=== PATIENT | female | born 1945 | race Caucasian/White ===

== ENCOUNTER → 2021-05-19 16:56 | Outpatient (BNVA) | payer OTHER, MEDICARE, SELFPAY | PROVIDERS: Visit Provider Nurse Practitioner Family | DX: Z20.822 Contact with and (suspected) exposure to COVID-19 (principal) | CPT/HCPCS: 87635 ==

== ENCOUNTER 2024-02-09 12:41 | Emergency (ER) | payer OTHER, MEDICAID, SELFPAY ==
[2024-02-09] VITALS (7 sets, daily range): BP systolic 126–191; BP diastolic 68–94; PULSE 72–81; RESP 14–16; TEMP 36.6; O2SAT 95–97; BMI 19.2
--- NOTE | 2024-02-09 12:50 | PC.NURSE ---
Pt in restroom when called for triage
--- NOTE | 2024-02-09 14:12 | CTR_ITS ---
PROCEDURE INFORMATION: Exam: CT Head Without Contrast Exam date and time: 02/09/2024 2:50 PM Age: 78 years old Clinical indication: Dizziness; Additional info: Dizziness/hsu/weakness TECHNIQUE: Imaging protocol: Computed tomography of the head without contrast. Radiation optimization: All CT scans at this facility use at least one of these dose optimization techniques: automated exposure control; mA and/or kV adjustment per patient size (includes targeted exams where dose is matched to clinical indication); or iterative reconstruction. COMPARISON: No relevant prior studies available. RADIATION DOSE METRICS: Total DLP (mGy-cm): 1070 FINDINGS: Brain: Age related brain involution is present. Diffuse subcortical and periventricular white matter hypodensities are most in favor with chronic small vessel disease. Chronic right basal ganglia lacunar infarcts. Chronic encephalomalacia in the bilateral occipital lobes. Chronic lacunar infarcts in the left frontal subcortical periventricular white matter. No extra-axial fluid collections, midline shift, brain herniation, intracranial hemorrhage, or mass effect. Cerebral ventricles: Compensatory exvacuo ventriculomegaly is present. Paranasal sinuses: Visualized sinuses are unremarkable. No fluid levels. Mastoid air cells: Visualized mastoid air cells are well aerated. Orbital cavities: There have been bilateral intraocular lens replacements. Bones: Unremarkable. No acute fracture. Soft tissues: Unremarkable. Other findings: Intracranial atherosclerosis is present. CT/CT head wo con* [id number] IMPRESSION: No acute intracranial abnormality.
--- NOTE | 2024-02-09 14:12 | XRR_ITS ---
PROCEDURE INFORMATION: Exam: XR Chest Exam date and time: 02/09/2024 2:41 PM Age: 78 years old Clinical indication: Other: Dizzy; Additional info: Dizziness TECHNIQUE: Imaging protocol: Radiologic exam of the chest. Views: 1 view. COMPARISON: No relevant prior studies available. FINDINGS: Airway: Patent Lungs: Lung hyperexpansion, favoring COPD. Lung hyperlucency, favoring emphysema. There are multiple punctate pulmonary parenchymal calcifications, consistent with remote granulomatous organism exposure. Mild chronic interstitial reticulation in the bilateral costophrenic angles, likely related to chronic interstitial lung disease/atelectasis. No consolidations. 1.4 cm calcified nodule in the left mid lung or anterior chest wall soft tissues. Lateral view should be able to clarify its position. Pleural spaces: No pleural effusions or pneumothorax. Heart/Mediastinum: Prior TAVR. The heart demonstrates mild diffuse enlargement. Vasculature: Calcified aortic knob. Bones/joints: No acute skeletal abnormality or aggressive osseous lesion. XR/XR chest 1V portable [id number] IMPRESSION: No acute thoracic pathology.
--- NOTE | 2024-02-09 14:20 | ECG_ITS ---
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 Measurements Intervals [place] Rate: 75 P: 0 OR: 0 QRS: -33 QRSD: 94 T: 112 QT: 373 QTc: 418 Interpretive Statements ATRIAL FIBRILLATION LEFT AXIS DEVIATION [QRS AXIS < -30] PATTERN CONSISTENT WITH PULMONARY DISEASE VOLTAGE CRITERIA FOR LVH [MEETS CRITERIA IN ONE OF: R(aVL), S(V1), R(V5), R(V5/V6)+S(V1)] POSSIBLE SEPTAL MYOCARDIAL INFARCTION , OF INDETERMINATE AGE [30 ms Q WAVE IN V1/V2] MODERATE T-WAVE ABNORMALITY, CONSIDER LATERAL ISCHEMIA [-0.1+ mV T-WAVE IN I/aVL/V5/V6] No previous ECG available for comparison Electronically Signed On 02-09-2024 20:23:10 CDT by Raji Hartman M.D. [id number]
--- NOTE | 2024-02-09 14:34 | ED_ITS ---
HPI - Weakness 2 General: Chief complaint: Weakness Stated complaint: Weakness, disoriented Time Seen by Provider: 02/09/24 14:02 Source: patient and family Mode of arrival: ambulatory Limitations: no limitations History of Present Illness: Patient is an 78-year-old female brought into the emergency department by son due to weakness for the past day. Son is primary historian and states that last night he called the patient and she just seemed not her spunky self. He states that the patient has a history of hyponatremia and urinary tract infections that both in the past have caused her to seem weak and disoriented. This morning, patient's other son was driving through and stopped at patient's house for breakfast, when patient spilled cereal bowl and just sat there and did nothing. Reportedly she was given a new bowl of cereal and after eating seemed to perk up a bit. However when son arrived to patient's house this morning to pick her up, she was reportedly so weak that he had to help her to the car. Normally patient is ambulatory and alert and oriented x 4 and does not use assistance with cane or walker. Son states that patient has had identical symptoms in the past from urinary tract infection but also from low sodium. Patient has been hospitalized for low sodium in addition to a fall where she reportedly struck her head and was required to be restrained for a week due to behavioral changes. At that time son notes that she seemed to have an old stroke found on CT, but this is not elaborated on further. Patient does have a history of atrial fibrillation and is anticoagulated. There are no recent falls or medication changes to note. Patient is not short of breath or complaining of any chest pain or palpitations. She does note that she feels dizzy and has had a headache for the past day. She also confirms that she is weak and can tell that it is harder for her to walk. At this time she is only alert and oriented to self, son states that this is normal for her when she either has a urinary tract infection or electrolyte imbalances. Complaint: generalized weakness Onset (ago): day(s) Duration: constant Location: generalized Associated symptoms: Reports confusion and headache(s); Denies chest pain, chills, dysuria, fever(s), nausea or vomiting Review of Systems 2 General: Reports: 10 or more systems reviewed and unremarkable except in HPI and below Const: Denies: fever(s), chills or fatigue Eyes: Denies: change in vision ENMT: Denies: throat pain, ear or mastoid pain or nasal discharge Card: Denies: chest pain, palpitations, swelling of feet/ankles or lightheadedness Resp: Denies: dyspnea, productive cough or wheezing GI: Denies: abdominal pain, nausea, vomiting, diarrhea or constipation : Denies: flank pain, difficulty voiding, dysuria or urinary frequency Musc: Denies: neck pain, back pain or joint pain Skin/Breast: Denies: rash Neuro: Reports: headache(s), weakness in extremities, dizziness and confusion; Denies: numbness in extremities, sensory changes, lack of coordination, frequent falls, behavioral changes, Slurred speech present or seizure-like activity Physical Exam 2 Const: COMMON NORMALS: no acute distress, no limitations and healthy appearing GENERAL APPEARANCE: cooperative, comfortable and well developed O RIENTATION/CONSCIOUSNESS: Yes awake and Yes oriented to person HENMT: COMMON NORMALS: normocephalic, atraumatic and hearing grossly normal bilaterally HEAD & SCALP: normocephalic and atraumatic Eye: COMMON NORMALS: Equal, round and reactive pupils present, EOMs intact bilaterally and conjunctivae normal CONJUNCTIVA: Yes conjunctivae normal P UPIL: Yes Equal, round and reactive pupils present Neck/C-Spine: COMMON NORMALS: full ROM, supple and no JVD Resp: COMMON NORMALS: normal respiratory effort, No retractions, No use of accessory muscles and clear to auscultation bilaterally AUSCULTATION: clear to auscultation bilaterally Cardio: COMMON NORMALS: no JVD, regular rate, No clicks present (Cardio) and No rub (Cardio) RATE: regular rate RHYTHM: abnormal rhythm irregularly irregular HEART SOUNDS: Murmur heart sound present systolic GI: COMMON NORMALS: Normal to inspection, nondistended, normoactive bowel sounds present, Soft to palpation and non-tender AUSCULTATION: Yes normoactive bowel sounds PALPATION: Yes Soft to palpation RECTAL EXAM: d eferred Extremity: COMMON NORMALS: normal to inspection, full ROM and capillary refill normal Neuro: COMMON NORMALS: CN's II-XII intact bilaterally, moves all extremities, no focal motor deficits and no sensory deficits noted SENSORIUM/ORIENTATION: Yes oriented to person COORDINATION/BALANCE: [id number]-jk-[id number] test normal and obus-ie-fbdr test normal SPEECH: speech normal GAIT: Yes Shuffling gait present MOTOR EXAM: 5/5 motor strength present throughout, Pronator motor function not present and no tremor noted COORDINATION: mcpacp-sp-ksjb test normal and davp-kc-srrc test normal OTHER: Patient is alert and oriented only to self, is unable to state the date or where she is Skin: COMMON NORMALS: no rashes or lesions noted GENERAL SKIN EXAM: no rashes or lesions noted Course 2 Vital Signs: Vital signs: Vital Signs Temperature 97.9 F 02/09/24 13:08 Pulse Rate 78 02/09/24 17:00 Respiratory Rate 16 02/09/24 17:00 Blood Pressure 182/94 02/09/24 17:00 Pulse Oximetry 96 02/09/24 17:00 Oxygen Delivery Me thod Room Air 02/09/24 17:00 MDM - Weakness Medical Decision Making Patient brought in by son for concerns of weakness and dorsal orientation for the past day or so. Son did note that patient has acted similarly with low sodium and urinary tract infection in the past. Patient was alert to self only on physical examination, however son did note that this is not uncommon when she has either UTI or electrolyte abnormalities. Vitals were normal on arrival, blood pressure has steadily increased throughout the ED course, however was 160 systolic upon discharge and patient is noted to run high. Her neurological examination otherwise was completely normal as she did not demonstrate any focal deficit. Her initial EKG revealed atrial fibrillation which she has history of, no STEMI and rate of 75. This initial EKG was reviewed with Dr. Pride. She does live alone and son regularly checks up on her, normally ambulatory without use of assistance. Lab work did find her to have a low sodium of 131, son does note that it normally runs 132?135. Creatinine and BUN slightly elevated, patient does have history of kidney disease. Per son, her troponin is also chronically elevated. Her baseline and delta troponin today more on diagnostic when taking this into account. Hemoglobin was decreased likely secondary to her chronic kidney disease. 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 Urinalysis did reveal evidence of bladder infection, which could likely be explaining patient's increased weakness and apparent disorientation. She will be started on cefdinir and I did inform her and son to follow-up with primary care next Tuesday for reevaluation and recheck of labs. Did inform her to keep a log of her blood pressures as well to to discuss with primary care as currently at this time she only takes amlodipine once a day. Entirety of the case and patient's workup reviewed with supervising ED physician, Dr. Deutsch, who agrees with disposition at this time. Lab Data 02/09/24 14:40 02/09/24 14:40 Radiology Impressions Chest X-Ray 02/09/24 14:12 IMPRESSION: No acute thoracic pathology. Head CT 02/09/24 14:12 IMPRESSION: No acute intracranial abnormality. Laboratory Results WBC 10.40 10^3/uL (3.29-11.43) 02/09/24 14:40 RBC 3.41 10^6/uL (3.85-5.65) L 02/09/24 14:40 Hgb 10.40 g/dL (11.27-16.99) L 02/09/24 14:40 Hct 32.6 % (36-47) L 02/09/24 14:40 MCV 95.6 fl (85-98) 02/09/24 14:40 MCH 30.5 pg (27-33) 02/09/24 14:40 MCHC 31.9 g/dL (30-55) 02/09/24 14:40 RDW 14.7 % (12.1-15.1) 02/09/24 14:40 Plt Count 234 10^3/cmm (157-399) 02/09/24 14:40 MPV 12.1 fL (7.4-10.4) H 02/09/24 14:40 Neut % (Auto) 73.8 % 02/09/24 14:40 Lymph % (Auto) 15.8 % 02/09/24 14:40 [place] % (Auto) 9.7 % 02/09/24 14:40 Eos % (Auto) 0.1 % 02/09/24 14:40 Baso % (Auto) 0.3 % 02/09/24 14:40 Neut # (Auto) 7.68 10^3/uL (1.8-7.7) 02/09/24 14:40 Lymph # (Auto) 1.6 10^3/uL (0.8-4.8) 02/09/24 14:40 [place] # (Auto) 1.0 10^3/uL (0.2-0.9) H 02/09/24 14:40 Eos # (Auto) 0.0 10^3/uL (0.0-0.8) 02/09/24 14:40 Baso # (Auto) 0.0 10^3/uL (0.0-0.1) 02/09/24 14:40 Nucleated RBC % (auto) 0 % 02/09/24 14:40 Nucleated RBCs # 0.0 /100WBC 02/09/24 14:40 PT 16.10 SECONDS (12.1-14.9) H 02/09/24 14:40 INR 1.25 (0.8-1.2) H 02/09/24 14:40 APTT 26.1 SECONDS (23.9-36.7) 02/09/24 14:40 Sodium 131 mmol/L (136-145) L 02/09/24 14:40 Potassium 4.8 mmol/L (3.5-5.1) 02/09/24 14:40 Chloride 94 mmol/L (98-107) L 02/09/24 14:40 Carbon Dioxide 24 mmol/L (22-29) 02/09/24 14:40 Anion Gap 17.8 (5-19) 02/09/24 14:40 BUN 36 mg/dL (8-23) H 02/09/24 14:40 Creatinine 1.2 mg/dL (0.5-0.9) H 02/09/24 14:40 GFR Calculation Not Reportable 02/09/24 14:40 Glucose 129 mg/dL (65-115) H 02/09/24 14:40 Calculated Osmolality 282 mOsm/kg (285-295) L 02/09/24 14:40 Calcium 9.7 mg/dL (8.5-10.5) 02/09/24 14:40 Magnesium 1.4 mg/dL (1.7-2.3) L 02/09/24 14:40 Total Bilirubin 0.4 mg/dL (0.15-1.2) 02/09/24 14:40 AST 23 U/L (0-32) 02/09/24 14:40 ALT 16 U/L (0-33) 02/09/24 14:40 Alkaline Phosphatase 75 U/L (35-105) 02/09/24 14:40 Troponin T Baseline 28 ng/L (0-10) H 02/09/24 14:40 Troponin T 120 Minute 24.87 ng/L (0-10) H 02/09/24 16:25 Delta Troponin T -3.13 ABS# (0-10) L 02/09/24 16:25 Total Protein 7.7 g/dL (6.6-8.7) 02/09/24 14:40 Albumin 4.2 g/dL (3.5-5.2) 02/09/24 14:40 Globulin 3.5 g/dL (1.3-4.6) 02/09/24 14:40 Urine Color Yellow (Yellow) 02/09/24 16:07 Urine Appearance Slightly cloudy (CLEAR) 02/09/24 16:07 Urine pH 6 (5-7) 02/09/24 16:07 Ur Specific [place] 1.010 (1.005-1.030) 02/09/24 16:07 Urine Protein Trace (Negative) 02/09/24 16:07 Urine Glucose (UA) Norm (Normal) 02/09/24 16:07 Urine Ketones Negative (Negative) 02/09/24 16:07 Urine Blood Neg (Negative) 02/09/24 16:07 Urine Nitrate Positive (Negative) A 02/09/24 16:07 Urine Bilirubin Neg (Negative) 02/09/24 16:07 Urine Urobilinogen Neg mg/dL (Negative) 02/09/24 16:07 Ur Leukocyte Esterase Negative (Negative) 02/09/24 16:07 Urine RBC 0-4 /hpf (0-2) H 02/09/24 16:07 Urine WBC 5-10 /hpf (0-5) H 02/09/24 16:07 Ur Squamous Epith Cells 0-4 /hpf (0-5) H 02/09/24 16:07 Amorphous Sediment Not Reportable 02/09/24 16:07 Urine Bacteria 3+ /hpf (NONE) H 02/09/24 16:07 Urine Mucus Trace /hpf 02/09/24 16:07 All radiology interpretation(s) finalized by discharge Discharge Plan Discharge Patient Disposition: Home Clinical Impression: Chronic hyponatremia Urinary tract infection Qualifiers: Urinary tract infection type: acute cystitis Hematuria presence: without hematuria Qualified Code(s): N30.00 - Acute cystitis without hematuria Chronic kidney disease Qualifiers: Chronic kidney disease stage: unspecified stage Qualified Code(s): N18.9 - Chronic kidney disease, unspecified Condition: Stable Prescriptions: New cefdinir 300 mg capsule 300 mg PO BID 10 Days Qty: 20 0RF No Action Eliquis 5 mg tablet 5 mg PO BID diltiazem HCl 240 mg capsule,extended release 24 hr 240 mg PO DAILY levothyroxine 88 mcg capsule 88 mcg PO DAILY atorvastatin 40 mg tablet 40 mg PO DAILY metformin 500 mg tablet 500 mg PO DAILY amlodipine 5 mg tablet 5 mg PO DAILY sodium chloride 1,000 mg tablet,soluble 1,000 mg PO DAILY stool softener PO Laxative (bisacodyl) 5 mg tablet 5 mg PO DAILY melatonin 10 mg capsule 10 mg PO DAILY Discharge Orders: Discharge ED (Routine); Ordered 02/09/24 Ordered By: Trung Soria Discharge Diet: As Directed Discharge Activity: Increase activity as tolerated Patient Instructions: Urinary Tract Infection in Older Adults (ED) Activity Restrictions/Additional Instructions: Take cefdinir as prescribed. Plenty of fluids. Please follow-up with primary care next Tuesday for recheck of labs and for general reevaluation. Monitor your blood pressures at home to report to primary care. If you develop any new or concerning symptoms please return to the emergency department immediately. Coding Level of Care Code ED Photographic Technician for Mikey Marcano
[2024-02-09 14:52] LABS: Basophils % 0.3 %; Eosinophils % 0.1 %; Hematocrit 32.6 % (36-47); Lymphocytes # 1.6 10^3/uL (0.8-4.8); Lymphocytes % 15.8 %; Mean Corpuscular HGB Conc 31.9 g/dL (30-55); Mean Corpuscular Hemoglobin 30.5 pg (27-33); Mean Corpuscular Volume 95.6 fl (85-98); Mean Platelet Volume 12.1 fL (7.4-10.4); Monocytes % 9.7 %; Neutrophils # 7.68 10^3/uL (1.8-7.7); Neutrophils % 73.8 %; Nucleated Red Blood Cells % 0 %; Platelet Count 234 10^3/cmm (157-399); Red Blood Count 3.41 10^6/uL (3.85-5.65); Red Cell Distribution Width 14.7 % (12.1-15.1)
[2024-02-09 15:05] LABS: INR 1.25 (0.8-1.2)
[2024-02-09 15:06] LABS: Partial Thromboplastin Time 26.1 SECONDS (23.9-36.7)
[2024-02-09 15:15] LABS: Alanine Aminotransferase 16 U/L (0-33); Albumin Level 4.2 g/dL (3.5-5.2); Alkaline Phosphatase 75 U/L (35-105); Anion Gap 17.8 (5-19); Aspartate Amino Transferase 23 U/L (0-32); Blood Urea Nitrogen 36 mg/dL (8-23); Calcium 9.7 mg/dL (8.5-10.5); Carbon Dioxide 24 mmol/L (22-29); Chloride 94 mmol/L (98-107); Globulin 3.5 g/dL (1.3-4.6); Glucose 129 mg/dL (65-115); Magnesium 1.4 mg/dL (1.7-2.3); Osmolality Calculated 282 mOsm/kg (285-295); Potassium 4.8 mmol/L (3.5-5.1); Sodium 131 mmol/L (136-145); Total Bilirubin 0.4 mg/dL (0.15-1.2); Total Protein 7.7 g/dL (6.6-8.7)
[2024-02-09 15:16] LABS: Troponin(5th) Baseline 28 ng/L (0-10)
[2024-02-09] MEDS: sodium chloride 0.9% 1,000 ML 999 ML IV (15:50)
[2024-02-09 16:34] LABS: Blood Urine Neg (Negative); Glucose Urine UA Norm (Normal); Ketones Urine Negative (Negative); Protein Urine Trace (Negative); Urine Appearance Slightly Cloudy (CLEAR); Urine Color Yellow (Yellow); pH Urine 6 (5-7)
[2024-02-09 16:35] LABS: Add Urine Microscopic? YES; Bilirubin Urine Neg (Negative); Leukocyte Esterase Urine Negative (Negative); Nitrate Urine Positive (Negative); RBC Urine 0-4 /hpf (0-2); Urobilinogen Urine Neg (Negative)
[2024-02-09 16:36] LABS: Bacteria Urine 3+ /hpf; Squamous Epithelial Cell Urine 0-4 /hpf (0-5)
[2024-02-09 16:37] LABS: Add Urine Culture? Yes; Mucus Urine TRACE /hpf
--- NOTE | 2024-02-09 16:41 | ECG_ITS ---
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 Measurements Intervals [place] Rate: 71 P: 0 LA: 0 QRS: -36 QRSD: 122 T: 121 QT: 395 QTc: 430 Interpretive Statements ATRIAL FIBRILLATION LEFT AXIS DEVIATION [QRS AXIS < -30] POSSIBLE RIGHT VENTRICULAR CONDUCTION DELAY [RSR (QR) IN V1/V2] VOLTAGE CRITERIA FOR LVH [MEETS CRITERIA IN ONE OF: R(aVL), S(V1), R(V5), R(V5/V6)+S(V1)] ST DEVIATION AND MODERATE T-WAVE ABNORMALITY, CONSIDER LATERAL ISCHEMIA [-0.1+ mV T-WAVE IN I/aVL/V5/V6] Compared to ECG 02/09/2024 14:20:55 Myocardial infarct finding no longer present T-wave abnormality still present Possible ischemia still present Electronically Signed On 02-09-2024 20:22:13 CDT by Raji Hartman M.D. [email or web address]/[id number]
[2024-02-09 16:49] LABS: Troponin 5 2HR 24.87 ng/L (0-10)
[2024-02-09 16:52] LABS: Troponin 5 2HR Delta -3.13 ABS# (0-10)
== END 2024-02-09 18:04 | disposition home or self-care (01) ==
PROVIDERS: Emergency Provider Physician Assistant
DX: N30.00 Acute cystitis without hematuria (principal); E87.1 Hypo-osmolality and hyponatremia; N18.9 Chronic kidney disease, unspecified; Z79.01 Long term (current) use of anticoagulants; Z79.84 Long term (current) use of oral hypoglycemic drugs
CPT/HCPCS: 36415; 70450; 71045; 80053; 81001; 83735; 84484; 85025; 85610; 85730; 87077; 87086; 87186; 93005; 99285; J3490; J7030